=== PATIENT | female | born 1980 | race Caucasian/White ===

== ENCOUNTER → 2021-06-08 00:29 | Outpatient (CLI) | payer MEDICAID, SELFPAY | PROVIDERS: Referring Provider Physician Assistant Surgical; Visit Provider Physician Assistant Surgical | DX: T30.0 Burn of unspecified body region, unspecified degree (principal) | CPT/HCPCS: 87070; 87205 ==

== ENCOUNTER 2024-02-19 04:48 | Emergency (ER) | payer OTHER, SELFPAY ==
[2024-02-19 04:49] VITALS: BP 155/92; PULSE 86; RESP 20; TEMP 36.4; O2SAT 97; BMI 38.9
--- NOTE | 2024-02-19 05:00 | RAD_ITS ---
INDICATION: COUGH EXAMINATION/TECHNIQUE: X-RAY - XR Chest 2 Views COMPARISON: None. Findings: Frontal and lateral views of the chest. LUNG PARENCHYMA: No acute focal airspace disease or mass lesion. PLEURA: No pleural effusion. No pneumothorax. HEART/GREAT VESSELS: Cardiomediastinal silhouette is unremarkable. BONES: Osseous structures are unremarkable for age. RAD/Chest PA and Lateral IMPRESSION: Chest with no acute disease. Electronically Signed: Sathish Woods MD at 6:22 EDT ,
--- NOTE | 2024-02-19 05:50 | EDS_ITS ---
HPI History of Present Illness Chief Complaint: General Illness Informant: patient Narrative Narrative: Patient is a 43-year-old female with past medical history of hypertension. She states for approximately 7 days she has had nasal congestion sore throat cough a nd fatigue. She denies any other known sick contact. She states that other people in the house became sick after her however they had symptoms for a few days and then they began to resolve but hers has persisted. She states this morning symptoms seem to be more intense than they were the last few days and secondary to this she comes in for evaluation [facility] Medical History Encounter for screening for COVID-19 Arthritis Hypertension Home Medications ?Medication ?Instructions ?Recorded ?Last Taken ?Type benzonatate 200 mg capsule 200 mg PO TID PRN cough #30 caps 02/19/24 Unknown Rx uyicceuy-btjtyiabx-phrdwyac 3.5 2 drp EACH EYE 4X/DAY 7 days #5 mL 02/19/24 Unknown Rx mg/mL-10,000 unit/mL-0.1% eye drops (Maxitrol) prednisone 20 mg tablet 40 mg (2 x 20 mg) PO DAILY 5 days 02/19/24 Unknown Rx #10 tabs Allergy/AdvReac Type Severity Reaction Status Date / Time acetaminophen (From Vicodin) Allergy Intermediate Hives Verified 02/19/24 04:51 codeine Allergy Intermediate Hives Verified 06/24/21 17:00 hydrocodone (From Vicodin) Allergy Intermediate Hives Verified 02/19/24 04:51 Family History Other Diabetes Surgical History Hx of cholecystectomy Social History Smoking Status: Former smoker ROS ROS ED Constitutional Constitutional ED: Denies chills or fever(s) Eyes Eyes: Denies blurry vision or change in vision ENT ENT ED: Reports rhinorrhea and sore throat Cardiovascular Cardiovascular: Denies chest pain Respiratory/Chest Respiratory/Chest: Reports cough; Denies dyspnea Gastrointestinal Gastrointestinal: Denies abdominal pain, diarrhea, nausea or vomiting Genitourinary Genitourinary ED: Denies dysuria Musculoskeletal Musculoskeletal: Reports myalgias Integumentary Denies rash Neurologic Neurologic: Denies headache(s) Hematologic/Lymphatic Hematologic/Lymphatic: Denies easy bleeding or easy bruising EXAM Physical Exam Const Vital Signs: 02/19/24 04:49 02/19/24 04:52 Temperature 97.6 F L Temperature Source Oral Pulse Rate 86 Respiratory Rate 20 H Respiratory Effort Normal Non-Labored Respiratory Pattern Normal Blood Pressure 155/92 H Blood Pressure Mean 113 Pulse Ox 97 Oxygen Delivery Method Room Air Positive well nourished and well developed General Appearance ED: well developed; Negative for pallor HEENT HEENT Narrative: Bilateral TMs are retracted but show no secondary changes to suggest infection Nasal mucosa is hyperemic and boggy with enlarged inferior nasal turbinates There is cobblestoning the posterior pharynx consistent with sinus drainage without airway edema or compromise. No secondary findings in the posterior pharynx to suggest infection Eyes PERRL and EOMs intact bilaterally Eyes Narrative: There is mild scleral injection bilaterally with mild conjunctival fullness bilaterally as well General Eye ED: Negative for scleral icterus Neck supple Neck Narrative: No nuchal rigidity or meningeal signs noted Positive anterior cervical lymphadenopathy present Chest Wall palpation of chest normal Resp normal respiratory effort and clear to auscultation bilaterally Resp Narrative: No nasal flaring retractions tachypnea or accessory muscle use Cardio regular rate and regular rhythm Extremity normal to inspection Extremity Narrative: No asymmetric edema no pitting edema negative Homans' sign bilaterally Neuro oriented x3, CN's II-XII intact bilaterally and no sensory deficits noted Sensorium / Orientation: alert Motor Exam: strength 5/5 throughout Psych mental status grossly normal Skin no rashes or lesions noted and no wounds General Skin Exam: Negative for jaundice or pallor MDM MDM MDM Narrative Medical decision making narrative: Patient arrived to the ER hypertensive otherwise with stable vitals. Constellation of symptoms is most consistent with a viral infection with concern this is COVID versus influenza versus RSV or even potential pneumonia I elected to perform a viral swab and chest x-ray. Chest x-ray revealed no acute lung pathology. Viral swab was negative. However her constellation of symptoms are consistent with a virus and as she is not testing positive for COVID it would indicate some other type of virus such as rhinovirus or human metapneumovirus. Either way she is not hypoxic or in respiratory distress or requiring supplemental oxygen and therefore there is no need for admission or further workup and she can be discharged home with symptomatic care History & Record Review Discussion w/independent historian: Patient Radiography Diagnostic Testin view chest x-ray as interpreted by the emergency medicine physician reveals no acute infiltrate pneumothorax pleural effusion or widening of the mediastinum Discharge Plan Triage Chief Complaint: General Illness ED Provider: Magnus Og Dx/Rx/DC Orders Clinical Impression: Viral upper respiratory tract infection with cough, Hypertension Instructions: ED URI, Viral, No Abx (Adult) Prescriptions: New benzonatate 200 mg capsule 200 mg PO TID PRN (Reason: cough) Qty: 30 0RF prednisone 20 mg tablet 40 mg PO DAILY 5 Days Qty: 10 0RF neomycin-polymyxin B-dexameth [Maxitrol] 3.5mg/mL-10,000 unit/mL-0.1 % drops,suspension 2 drp EACH EYE 4X/DAY 7 Days Qty: 5 0RF Stand Alone Forms: ED Work / School Excuse Primary Care Provider: Tamra Lemus NP Referrals: Tamra Lemus FITNESS/WELLNESS DIRECTOR, FITNESS/WELLNESS DIRECTOR-C [Primary Care Provider] - Activity Restrictions/Additional Instructions: Your x-ray revealed no pneumonia and your test for COVID was negative. However your symptoms are consistent with a viral upper respiratory tract infection which will typically take 14 to 21 days to resolve. Use the prescribed medication as well as [id number] medications to control symptoms and return to the ER should you have any further concerns Print Language: Greenlandic Disposition Disposition: Home, Self Care
[2024-02-19 06:28] VITALS: BP 143/102; PULSE 86; RESP 22; TEMP 35.6; O2SAT 97
== END 2024-02-19 06:29 | disposition home or self-care (01) ==
PROVIDERS: Emergency Provider Emergency Medicine; PCP Nurse Practitioner; Visit Provider Emergency Medicine
DX: J06.9 Acute upper respiratory infection, unspecified (principal); Z87.891 Personal history of nicotine dependence; I10 Essential (primary) hypertension; R05.9 Cough, unspecified; Z90.49 Acquired absence of other specified parts of digestive tract
CPT/HCPCS: 71046; 87631; 99282